=== PATIENT | female | born 1985 | race Hispanic/Latino ===

== ENCOUNTER 2018-07-02 11:00 | Inpatient (IN) | payer BC ==
[~2018-07-02] VITALS: Ht 162.6 cm; Wt 154.7 kg
[2018-07-02 10:00] LABS: HEMATOCRIT 37.9 % (36-48); MEAN CORPUSCULAR HEMOGLOBIN 28.5 pg (27.0-33.0); MEAN CORPUSCULAR HGB CONC 34.4 g/dL (32.0-36.0); MEAN CORPUSCULAR VOLUME 82.8 fL (79-99); PLATELET COUNT (AUTO) 193 K/uL (130-400); RED BLOOD CELL COUNT(AUTO) 4.58 MIL/uL (4.00-5.50); RED CELL DISTRIBUTION WIDTH 14.3 % (11.0-15.5); WHITE BLOOD COUNT (AUTO) 9.5 K/uL (4.8-10.8)
[~2018-07-02 11:00] MED LIST: PREN1TAB80 PO
[2018-07-03] MEDS ORDERED: LACTATED RINGERS 1000ML 1,000 ML IV SCH (06:00)
[2018-07-03] MEDS ORDERED: CEFAZOLIN SODIUM 1 GM VIAL IVP PRN (06:00)
[2018-07-03 06:47] VITALS: BP 127/59
[2018-07-03] MEDS ORDERED: DURAMORPH PF1 MG/ML 10ML AMP IV ONE (07:45)
[2018-07-03] MEDS ORDERED: CEFAZOLIN SODIUM 1 GM VIAL IVP ONE (08:00)
[2018-07-03 08:24] LABS: HEPATITIS Bs ANTIGEN SCREEN P Negative (Negative)
[2018-07-03] MEDS ORDERED: ONDANSETRON HCL 4 MG/2 ML VIAL ONE ×2 (08:40→09:07)
[2018-07-03] MEDS ORDERED: DEXAMETHASONE SOD PHOSPHATE 10MG/ML 1ML VIAL ONE (08:40)
[2018-07-03] MEDS ORDERED: LACTATED RINGERS 1000ML 1,000 ML IV ONE (09:08)
[2018-07-03] MEDS ORDERED: OXYTOCIN 10 USP UNITS/ML ONE ×2 (09:08→17:06)
[2018-07-03 10:30] VITALS: BP 116/50
[2018-07-03 11:13] VITALS: BP 104/50
[2018-07-03] MEDS ORDERED: MORPHINE SULFATE 2 MG/ML 1ML SYG IVP PRN (11:30)
[2018-07-03] MEDS ORDERED: DiphenhydrAMINE HCL 50 MG/ML VIAL IVP PRN (11:30)
[2018-07-03] MEDS ORDERED: PROMETHAZINE HCL 25 MG/ML 1ML AMPULE IM PRN ×2 (11:30→12:00)
[2018-07-03] MEDS ORDERED: NALOXONE HCL 0.4 MG/1 ML ML IVP PRN ×3 (11:30→12:00)
[2018-07-03] MEDS ORDERED: METOCLOPRAMIDE 10 MG/2 ML VIAL IVP PRN ×2 (11:30→12:00)
[2018-07-03] MEDS ORDERED: ONDANSETRON HCL 4 MG/2 ML VIAL IVP PRN ×3 (11:30→12:00)
[2018-07-03] MEDS ORDERED: HYDROCODONE/ACETAMINOPHEN 5/325 MG TAB PO PRN (11:30)
[2018-07-03] MEDS ORDERED: EPHEDRINE SULFATE 50 MG/ML AMPULE IVP PRN (11:30)
[2018-07-03] MEDS ORDERED: ONDANSETRON HCL 4 MG/2 ML 8 MG in SODIUM CHLORIDE 0.9% 50 ML IVP NR (11:30)
[2018-07-03] MEDS ORDERED: IPRATROPIUM/ALBUTEROL SULFATE 3 ML SOLUTION IH PRN (12:00)
[2018-07-03] MEDS ORDERED: FENTANYL CITRATE PF 50 MCG/1 ML 2ML VIAL IVP PRN (12:00)
[2018-07-03] MEDS ORDERED: MEPERIDINE-PF 25 MG/ML SYG IVP PRN (12:00)
[2018-07-03] MEDS ORDERED: MORPHINE SULFATE 5 MG/ML VIAL IVP PRN (12:00)
[2018-07-03] MEDS ORDERED: RACEPINEPHRINE HCL 2.25% 0.5 ML NEB SOLN NEB PRN (12:00)
[2018-07-03] MEDS ORDERED: KETOROLAC TROMETHAMINE 30MG/ML IVP PRN (12:00)
[2018-07-03] MEDS ORDERED: SODIUM CHLORIDE 0.9% 10 ML VIAL IVP PRN ×2 (12:15→12:45)
[2018-07-03] MEDS ORDERED: DEXTROSE 5 %-0.45 % NACL 1,000 ML IV SCH (12:15)
[2018-07-03] MEDS ORDERED: OXYTOCIN-LR 20 UNITS/1000 ML 1,000 ML IV PRN (12:21)
[2018-07-03] MEDS ORDERED: MEPERIDINE-PF 75 MG/ML SYG IM PRN (12:30)
[2018-07-03] MEDS ORDERED: DEXTROSE 5 %-0.45 % NACL 1,000 ML IV PRN (12:30)
[2018-07-03 15:43] VITALS: BP 115/62
[2018-07-03 20:06] VITALS: BP 114/54
[2018-07-03] MEDS: HYDROCODONE/ACETAMINOPHEN 5/325 MG TAB PO PRN (20:46)
[2018-07-03 22:40] VITALS: BP 112/49
[2018-07-04] MEDS: HYDROCODONE/ACETAMINOPHEN 5/325 MG TAB PO PRN (01:06)
[2018-07-04 04:26] VITALS: BP 105/49
[2018-07-04 07:00] LABS: HEMATOCRIT 31.8 % (36-48); MEAN CORPUSCULAR HEMOGLOBIN 28.6 pg (27.0-33.0); MEAN CORPUSCULAR HGB CONC 34.1 g/dL (32.0-36.0); MEAN CORPUSCULAR VOLUME 83.9 fL (79-99); PLATELET COUNT (AUTO) 153 K/uL (130-400); RED BLOOD CELL COUNT(AUTO) 3.79 MIL/uL (4.00-5.50); RED CELL DISTRIBUTION WIDTH 14.4 % (11.0-15.5); WHITE BLOOD COUNT (AUTO) 7.6 K/uL (4.8-10.8)
[2018-07-04 07:31] VITALS: BP 128/77
[2018-07-04] MEDS ORDERED: BISACODYL 10 MG SUPP.RECT RC PRN (08:45)
[2018-07-04] MEDS ORDERED: DIPHENHYDRAMINE HCL 25 MG CAPSULE PO PRN (08:45)
[2018-07-04] MEDS: SIMETHICONE 80 MG TAB.CHEW PO PRN ×3 (09:16→21:09)
[2018-07-04] MEDS: DOCUSATE SODIUM 100 MG CAP PO SCH ×2 (09:16→21:09)
[2018-07-04] MEDS: IBUPROFEN 800 MG TAB PO SCH ×2 (09:17→15:16)
[2018-07-04 11:13] VITALS: BP 126/83
[2018-07-04] MEDS: ACETAMINOPHEN-CODEINE 300/30MG TAB PO PRN ×2 (15:19→21:20)
[2018-07-04 15:35] VITALS: BP 102/61
[2018-07-04 19:28] VITALS: BP 109/62
[2018-07-04 23:39] VITALS: BP 127/57
[2018-07-05] MEDS: IBUPROFEN 800 MG TAB PO SCH ×2 (01:11→08:12)
[2018-07-05] MEDS: ACETAMINOPHEN-CODEINE 300/30MG TAB PO PRN ×2 (03:44→10:16)
[2018-07-05 03:54] VITALS: BP 142/84
[2018-07-05 07:26] VITALS: BP 111/54
[2018-07-05] MEDS: DOCUSATE SODIUM 100 MG CAP PO SCH (08:10)
[2018-07-05 11:12] VITALS: BP 112/66
== END 2018-07-05 13:10 | disposition home or self-care (01) | DRG 788 ==
LOC: LDH 07-03 05:43 → WSH 07-03 10:30
PROVIDERS: ADMIT Specialist; ATTEND Specialist
PROC: 10D00Z1 Extraction of Products of Conception, Low, Open Approach (ICD-10-PCS; principal; 2018-07-03 08:00)
DX: O34.211 Maternal care for low transverse scar from previous cesarean delivery (principal); O14.04 Mild to moderate pre-eclampsia, complicating childbirth; O99.214 Obesity complicating childbirth; E66.01 Morbid (severe) obesity due to excess calories; O69.81X0 Labor and delivery complicated by cord around neck, without compression, not applicable or unspecified; Z37.0 Single live birth; Z3A.38 38 weeks gestation of pregnancy
CPT/HCPCS: 36415; 59510; 85027; 86592; 86850; 86900; 86901; 87340; A4344; A4606; J0690; J1100; J2274; J2405; J2590; J7120